=== PATIENT | female | born 1990 | race American Indian/Alaskan Native ===

== ENCOUNTER 2016-11-12 19:09 | Emergency (ER) | payer MEDICAID ==
[2016-11-12 19:15] VITALS: BP 116/76; PULSE 92; RESP 16; TEMP 98.5; O2SAT 100
--- NOTE | 2016-11-12 19:52 | ED PDOC ---
HPI: General Adult Time Seen by Provider: 11/12/16 19:20 Chief Complaint (Nursing): Abnormal Skin Integrity Chief Complaint (Provider): Abscess History Per: Patient History/Exam Limitations: no limitations Onset/Duration Of Symptoms: Days Have you had recent travel within the past 21 days to any of the following countries: [place], [place], [place] or [place]?: No Current Symptoms Are (Timing): Still Present Severity: Moderate Additional History Per: Patient Additional Complaint(s): The pt is a 26yo female, reports hx of frequent abscesses, presents to ED for evaluation of a possible abscess in her left gluteal region. She denies any fever or chills. offers no additional medical complaints. Tetanus is not up to date. Past Medical History Reviewed: Historical Data, Nursing Documentation, Vital Signs Vital Signs: Last Vital Signs Temp 98.5 F 11/12/16 19:13 Pulse 92 H 11/12/16 19:13 Resp 16 11/12/16 19:13 BP 116/76 11/12/16 19:13 Pulse Ox 100 11/12/16 20:27 - Medical History PMH: Asthma, Bronchitis - Family History Family History: States: Unknown Family Hx - Immunization History Hx Tetanus Toxoid Vaccination: No Hx Influenza Vaccination: Yes Hx Pneumococcal Vaccination: No - Home Medications Home Medications: Ambulatory Orders Medication Instructions Recorded Albuterol HFA [Ventolin HFA 90 2 puff IH Q4H #1 puff 07/10/15 mcg/actuation (8 g)] Amoxicillin [Amoxil 500 mg Cap] 500 mg PO TID #30 cap 07/10/15 predniSONE [predniSONE Tab] 10 mg PO TID #15 tab 07/10/15 Cephalexin [Keflex] 500 mg PO QID #28 capsule 11/12/16 Naproxen [Naprosyn Tab] 1 tab PO Q8 PRN #21 tab 11/12/16 Sulfamethoxazole/Trimethoprim 1 tab PO BID #14 tab 11/12/16 [Bactrim DS 800 mg-160 mg] - Allergies Allergies/Adverse Reactions: Allergies Allergy/AdvReac Type Severity Reaction Status Date / Time No Known Allergies Allergy Verified 07/09/15 22:11 Review of Systems ROS Statement: Except As Marked, All Systems Reviewed And Found Negative Constitutional: Negative for: Fever, Chills Skin: Positive for: Other (possible abscess in left gluteal region) Physical Exam - Reviewed Nursing Documentation Reviewed: Yes Vital Signs Reviewed: Yes - Physical Exam Appears: Positive for: Well, Non-toxic, No Acute Distress Head Exam: Positive for: ATRAUMATIC, NORMAL INSPECTION, NORMOCEPHALIC Skin: Positive for: Normal Color Eye Exam: Positive for: Normal appearance Neck: Positive for: Normal Cardiovascular/Chest: Positive for: Regular Rate, Rhythm Respiratory: Negative for: Respiratory Distress Rectal: Positive for: Other (2.5 cm region of fluctuance noted in pilonidal region. no surrounding erythema.) Neurologic/Psych: Positive for: Alert, Oriented - ECG O2 Sat by Pulse Oximetry: 100 (RA) Pulse Ox Interpretation: Normal Medical Decision Making Medical Decision Making: Time: 1949 Impression: Abscess Plan: -- TDAP booster -- Pt informed to take hot soaks and visit the ED in 2-3 days for I&D of abscess. Will be d/c home with Rx antibiotics. Scribe Attestation: All records were documented by Symone Ponce, acting as a Scribe for MONA Hartley. Provider Scribe Attestation: All medical record entries made by the Scribe were at my direction and personally dictated by me. I have reviewed the chart and agree that the record accurately reflects my personal performance of the history, physical exam, medical decision making, and the department course for this patient. I have also personally directed, reviewed, and agree with the discharge instructions and disposition. Attempted aspiration of abscess unsuccessful. Patient to return in 2 days after soaking warm compress/antibiotics Disposition - Clinical Impression Clinical Impression: Abscess - Patient ED Disposition Is Patient to be Admitted: No - Disposition Referrals: Lowell Diaz MD [Staff Provider] - Disposition: Routine/Home Disposition Time: 21:00 Condition: FAIR Prescriptions: Cephalexin [Keflex] 500 mg PO QID #28 capsule Naproxen [Naprosyn Tab] 1 tab PO Q8 PRN #21 tab PRN Reason: Pain, Moderate (4-7) Sulfamethoxazole/Trimethoprim [Bactrim DS 800 mg-160 mg] 1 tab PO BID #14 tab Instructions: Abscess (ED) Forms: [facility] ED School/Work Excuse
[2016-11-12] MEDS ORDERED: Lidocaine 2% Inj (20ml) SC ONE (19:58)
[2016-11-12] MEDS ORDERED: Lidocaine 2% w Epi 1:100,000 Inj IJ ONE (19:59)
[2016-11-12] MEDS ORDERED: Povidone Iodine Oint 10% Foilpak UD ONE (20:00)
[2016-11-12] MEDS ORDERED: TDAP Vaccine 0.5 mL Syr IM ONE (20:23)
== END 2016-11-12 21:00 | disposition home or self-care (01) ==
LOC: H.ER 19:09
DX: J45.909 Unspecified asthma, uncomplicated (principal)